=== PATIENT | male | born 1995 | race Caucasian/White ===

== ENCOUNTER 2018-10-10 01:51 | Emergency (ER) | payer BC ==
--- NOTE | 2018-10-10 02:02 | EDPHY ---
H & P Time Seen by Provider: 10/10/18 02:00 HPI/ROS: Chief Complaint: Medical clearance HPI: 23-year-old male being brought in for evaluation. Patient was with his friend who overdosed on heroin. Patient is brought in by EMS for evaluation. Patient denies any ingestions. He is awake and alert but has slurred speech and small pupils. He denies using any heroin or any other drugs tonight. Denies alcohol. Is currently without complaint. Denies any falls or trauma. States that he has used opioids in the last 2 days. Does admit to chronic heroin use. ROS: 10 systems were reviewed and were negative except those elements noted in the HPI. PMH: Polysubstance abuse Social History: No smoking, positive alcohol, positive heroin Family History: non-contributory Physical Exam: Gen: Awake, Alert, No Distress HEENT: Nose: no rhinorrhea Eyes: PERRLA, EOMI Mouth: Moist mucosa Neck: Supple, no JVD Chest: nontender, lungs clear to auscultation Heart: S1, S2 normal, no murmur Abd: Soft, non-tender, no guarding Back: no CVA tenderness, no midline tenderness Ext: no edema, non-tender, patient has bilateral fresh track reyes in both arms. Skin: no rash Neuro: CN II-XII intact, Sensation grossly intact, Strength 5/5 in bilateral upper and lower extremities Constitutional: Initial Vital Signs Temperature (C) 36.7 C 10/10/18 01:59 Heart Rate 96 10/10/18 01:59 Respiratory Rate 14 10/10/18 01:59 Blood Pressure 151/85 H 10/10/18 01:59 O2 Sat (%) 77 L 10/10/18 01:59 O2 Delivery Mode Room Air O2 (L/minute) 3 Allergies/Adverse Reactions: No Known Allergies Allergy (Unverified 10/10/18 01:59) Home Medications: Medication Instructions Recorded NK [No Known Home Meds] 10/10/18 Medical Decision Making ED Course/Re-evaluation: Patient is awake alert, ambulating unassisted in the emergency department. The been observed for over 3 hr. Will discharge with follow-up as an outpatient. Patient has been counseled to seek treatment for his polysubstance abuse. He is not currently interested in treatment at this time. Departure - Departure Disposition: Home, Routine, Self-Care Clinical Impression: Polysubstance abuse Condition: Good Instructions: Polysubstance Abuse (ED) Referrals: Patient,NotPresent [Unknown] - As per Instructions
[2018-10-10 06:25] VITALS: BP 123/73
== END 2018-10-10 06:24 | disposition home or self-care (01) ==
DX: F11.129 Opioid abuse with intoxication, unspecified (principal); F10.920 Alcohol use, unspecified with intoxication, uncomplicated